=== PATIENT | female | born 1955 | race Caucasian/White ===

== ENCOUNTER 2019-09-23 10:28 | Emergency (ER) | payer OTHER ==
[2019-09-23 11:02] LABS: BASOPHILS # (AUTO) 0.1 10^3/uL (0.0-0.1); BASOPHILS % (AUTO) 0.7 %; EOSINOPHILS # (AUTO) 0.3 10^3/uL (0.0-0.7); EOSINOPHILS % (AUTO) 2.2 %; HGB - HEMOGLOBIN 14.6 g/dL (12.0-16.0); LYMPHOCYTES % (AUTO) 16.8 %; MEAN CORPUSCULAR HEMOGLOBIN 27.6 pg (27.0-31.0); MEAN CORPUSCULAR VOLUME 86.2 fL (81.0-99.0); MEAN PLATELET VOLUME 10.1 fL (7.9-10.8); MONOCYTES # (AUTO) 0.6 10^3/uL (0.0-1.0); MONOCYTES % (AUTO) 5.3 %; NEUTROPHILS # (AUTO) 8.9 10^3/uL (1.5-6.6); NEUTROPHILS % (AUTO) 74.4 %; PLT - PLATELET COUNT 372 10^3/uL (130-450); RED BLOOD COUNT 5.29 10^6/uL (4.20-5.40); RED CELL DISTRIBUTION WIDTH 15.9 % (12.0-15.0); WHITE BLOOD COUNT 11.9 x10^3/uL (4.8-10.8)
[2019-09-23 11:18] LABS: ALBUMIN 4.2 g/dL (3.2-5.5); ALBUMIN/GLOBULIN RATIO 1.1 (1.0-2.2); BILIRUBIN,TOTAL 0.7 mg/dL (0.2-1.0); CALCIUM 9.1 mg/dL (8.5-10.3); CREATININE 0.9 mg/dL (0.4-1.0); TOTAL PROTEIN 7.9 g/dL (6.7-8.2)
--- NOTE | 2019-09-23 11:22 | XRAY Report ---
Reason: Chest pain Procedure Date: 09/23/2019 Accession Number: [id number] / [id number] Procedure: XR - Chest 1 View X-Ray CPT Code: 78630 Final Report FULL RESULT: EXAM: CHEST RADIOGRAPHY 1 VIEW EXAM DATE: 09/23/2019. CLINICAL HISTORY: Chest pain. COMPARISON: None. TECHNIQUE: AP upright portable chest at 1051. FINDINGS: Lungs/Pleura: Normal vasculature. The lungs are clear. No pleural fluid or pneumothorax. Mediastinum: Normal cardiac and mediastinal contours. Bones: Mild degenerative changes of the spine. IMPRESSION: Normal AP upright portable chest. RADIA
--- NOTE | 2019-09-23 11:25 | ED Physician Documentation ---
PD HPI CHEST PAIN - Stated complaint Stated Complaint: CP - Chief complaint Chief Complaint: Cardiac - History obtained from History obtained from: Patient - History of Present Illness Timing - onset: How many weeks ago (Onset of chest pain 2 weeks ago which came on abruptly at that time and was only with light exertion. It continued for an hour or 2 and then decreased over a few hours. Since that time it has been intermittent with exertion mainly and light activity but the last several days has been even at rest. This morning she had an onset of the pain without really any exertion and it continued through being seen in the office. She was given a nitroglycerin which did relieve the pain. She had an EKG which shows some inverted T waves but no ST changes. Referred to the hospital for further testing.) Timing - onset during: Rest, Light activity Timing - details: Intermittant (initially, but more consistent and at rest the past couple of days.) Quality: Aching, Dull, Pain. 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 No: Rest Associated symptoms: Shortness of air, Feeling faint / dizzy. No: Palpitations, Cough Similar symptoms before: Has not had sx before Review of Systems Constitutional: denies: Fever, Chills Nose: reports: Rhinorrhea / runny nose (regularly due to allergies). denies: Congestion Throat: denies: Sore throat Respiratory: denies: Cough GI: denies: Abdominal Pain, Nausea, Vomiting, Diarrhea Skin: denies: Rash, Lesions Neurologic: reports: Generalized weakness. denies: Focal weakness, Numbness, Near syncope PD PAST MEDICAL HISTORY - Past Medical History Past Medical History: No Cardiovascular: None Respiratory: None Neuro: None Endocrine/Autoimmune: None GI: None NETWORKS COMPUTER CONSULTANT: None : None HEENT: None Psych: None Musculoskeletal: None Derm: None - Past Surgical History Past Surgical History: No - Allergies Allergies/Adverse Reactions: Allergies Allergy/AdvReac Type Severity Reaction Status Date / Time No Known Drug Allergies Allergy Verified 09/23/19 10:41 - Social History Does the pt smoke?: No Smoking Status: Never smoker Does the pt drink ETOH?: No - Immunizations Immunizations are current?: Yes - POLST Patient has POLST: No PD ED PE NORMAL - Vitals Vital signs reviewed: Yes - General General: Alert and oriented X 3, No acute distress, Well developed/nourished - HEENT HEENT: Moist mucous membranes, Pharynx benign - Neck Neck: Supple, no meningeal sign, No adenopathy, No JVD - Cardiac Cardiac: RRR, No murmur - Respiratory Respiratory: No respiratory distress, Clear bilaterally - Abdomen Abdomen: Soft, Non tender, No organomegaly - Female Female : Deferred - Rectal Rectal: Deferred - Back Back: No CVA TTP - Derm Derm: Normal color, Warm and dry - Extremities Extremities: No tenderness to palpate, Normal ROM s pain, No edema, No calf tenderness / cord - Neuro Neuro: Alert and oriented X 3, No motor deficit, Normal speech Results - Vitals Vitals: Vital Signs - 24 hr 09/23/19 09/23/19 09/23/19 10:39 11:56 12:00 Temperature 36.0 C L Heart Rate 96 97 81 Respiratory 16 14 15 Rate Blood Pressure 162/86 H 152/92 H 153/94 H O2 Saturation 98 98 98 09/23/19 09/23/19 09/23/19 12:05 12:10 12:31 Temperature Heart Rate 77 76 77 Respiratory 20 22 16 Rate Blood Pressure 141/92 H 149/86 H 147/84 H O2 Saturation 96 97 95 09/23/19 09/23/19 14:00 14:56 Temperature 36.9 C Heart Rate 90 85 Respiratory 19 24 Rate Blood Pressure 157/87 H 166/91 H O2 Saturation 97 98 Oxygen O2 Source Room air - EKG (time done) 10:41 Rate: Rate (enter#) (94) Rhythm: NSR [place]: Normal Intervals: Normal MO QRS: Normal Ischemia: Normal ST segments, T wave inversion (anterolaterally). No: ST elevation c/w ischemia, ST depression - Labs Labs: Laboratory Tests 09/23/19 09/23/19 09/23/19 10:55 10:55 10:55 WBC 11.9 H RBC 5.29 Hgb 14.6 Hct 45.6 MCV 86.2 MCH 27.6 MCHC 32.0 RDW 15.9 H Plt Count 372 MPV 10.1 Neut # (Auto) 8.9 H Lymph # (Auto) 2.0 Placer # (Auto) 0.6 Eos # (Auto) 0.3 Baso # (Auto) 0.1 Absolute Nucleated RBC 0.00 Nucleated RBC % 0.0 D-Dimer Sodium 139 Potassium 3.7 Chloride 99 L Carbon Dioxide 26 Anion Gap 14.0 H BUN 16 Creatinine 0.9 Estimated GFR (MDRD) 63 L Glucose 114 H Calcium 9.1 Magnesium Total Bilirubin 0.7 AST 17 ALT 22 Alkaline Phosphatase 74 Troponin I High Sens 111.1 H* B-Natriuretic Peptide Total Protein 7.9 Albumin 4.2 Globulin 3.7 Albumin/Globulin Ratio 1.1 Lipase 30 09/23/19 09/23/19 09/23/19 12:02 12:02 12:02 WBC RBC Hgb Hct MCV MCH MCHC RDW Plt Count MPV Neut # (Auto) Lymph # (Auto) Placer # (Auto) Eos # (Auto) Baso # (Auto) Absolute Nucleated RBC Nucleated RBC % D-Dimer < 200.0 L Sodium Potassium Chloride Carbon Dioxide Anion Gap BUN Creatinine Estimated GFR (MDRD) Glucose Calcium Magnesium 2.1 Total Bilirubin AST ALT Alkaline Phosphatase Troponin I High Sens B-Natriuretic Peptide 120 H Total Protein Albumin Globulin Albumin/Globulin Ratio Lipase 09/23/19 12:58 WBC RBC Hgb Hct MCV MCH MCHC RDW Plt Count MPV Neut # (Auto) Lymph # (Auto) Placer # (Auto) Eos # (Auto) Baso # (Auto) Absolute Nucleated RBC Nucleated RBC % D-Dimer Sodium Potassium Chloride Carbon Dioxide Anion Gap BUN Creatinine Estimated GFR (MDRD) Glucose Calcium Magnesium Total Bilirubin AST ALT Alkaline Phosphatase Troponin I High Sens 121.0 H* B-Natriuretic Peptide Total Protein Albumin Globulin Albumin/Globulin Ratio Lipase PD MEDICAL DECISION MAKING - ED course Complexity details: reviewed results (EKG with some T wave inversions but no ST elevations. Her troponin is moderately elevated suggesting myocardial injury. A repeat at 2 hours showed a very slight increase from 1 11-1 21. Her d-dimer was negative excluding PE. Her BNP was not elevated. At this point would be concern for unstable angina versus non-STEMI and she needs a higher degree of heart testing then we would provide here at our facility. I talked with [facility] cardiology initially and then the hospitalist. They are accepting of transfer.), re-evaluated patient, considered differential (Concern for [place] versus unstable angina. Given the onset couple of weeks ago quickly at that point, could also consider PE or lung related. Will check lab tests as well as EKG.), d/w patient Departure - Departure Disposition: 02 Transfer Acute Care Hosp Clinical Impression: Elevated troponin, Non-STEMI (non-ST elevated myocardial infarction) Chest pain Qualifiers: Chest pain type: precordial pain Qualified Code(s): R07.2 - Precordial pain Condition: Stable Record reviewed to determine appropriate education?: Yes
[2019-09-23] MEDS ORDERED: METOPROLOL 5 MG/5 ML VIAL IVP STA (11:47)
[2019-09-23] MEDS ORDERED: HEPARIN 25000UNITS/500ML (D5W) 25,000 UNIT/500 ML BAG IV STA (14:23)
[2019-09-23] MEDS ORDERED: CLOPIDOGREL 75 MG TABLET PO STA (14:23)
[2019-09-23] MEDS ORDERED: HEPARIN 5,000 UNIT/ML VIAL IVP STA (14:23)
[2019-09-23] MEDS ORDERED: ATORVASTATIN 10 MG TABLET PO STA (14:24)
[2019-09-23 15:56] VITALS: BP 155/78
== END 2019-09-23 15:56 | disposition short-term general hospital (02) ==
LOC: ED 10:28
DX: I21.4 Non-ST elevation (NSTEMI) myocardial infarction (principal); R07.2 Precordial pain
CPT/HCPCS: 36415; 71045; 80053; 83690; 83735; 83880; 84484; 85025; 85379; 93005; 96374; 96375; 99284; 99285; A9270

== ENCOUNTER 2019-09-23 15:54 | Outpatient (CLI) | payer OTHER | END 2019-09-23 15:55 | disposition short-term general hospital (02) | LOC: EMS 15:54 | PROVIDERS: ATTEND Surgery | DX: R07.9 Chest pain, unspecified (principal) | CPT/HCPCS: A0425; A0426 ==

== ENCOUNTER 2019-10-04 12:20 | Outpatient (CLI) | payer OTHER ==
[2019-10-04 17:27] LABS: CALCIUM 8.8 mg/dL (8.5-10.3)
== END 2019-10-04 23:59 | disposition home or self-care (01) ==
LOC: LAB.S 12:20
PROVIDERS: ATTEND Registered Nurse
DX: I25.2 Old myocardial infarction (principal)
CPT/HCPCS: 36415; 80048

== ENCOUNTER 2021-10-09 10:08 | Outpatient (CLI) | payer OTHER ==
[2021-10-09 16:04] LABS: ALBUMIN 3.7 g/dL (3.2-5.5); ALBUMIN/GLOBULIN RATIO 1.1 (1.0-2.2); ALKALINE PHOSPHATASE 95 IU/L (42-121); ALT ALANINE AMINOTRANSFERASE 29 IU/L (10-60); AST ASPARTATE AMINOTRANSFERASE 18 IU/L (10-42); BILIRUBIN,TOTAL 0.7 mg/dL (0.2-1.0); BUN - BLOOD UREA NITROGEN 21 mg/dL (6-20); CALCIUM 9.4 mg/dL (8.5-10.3); CARBON DIOXIDE - CO2 27 mmol/L (21-32); CHLORIDE 104 mmol/L (101-111); CHOL/HDL RATIO 2.3 (<4.4); CHOLESTEROL 100 mg/dL; CREATININE 0.8 mg/dL (0.4-1.0); GFR - MDRD 72 (>89); GLUCOSE 99 mg/dL (70-100); HDL CHOLESTEROL 43 mg/dL; LDL CHOLESTEROL,CALCULATED 44 mg/dL; LDL CHOLESTEROL,DIRECT 42 mg/dL; SODIUM 140 mmol/L (135-145); TRIGLYCERIDES 63 mg/dL; VLDL CHOLESTEROL 13 mg/dL
[2021-10-09 16:30] LABS: BASOPHILS # (AUTO) 0.1 10^3/uL (0.0-0.1); BASOPHILS % (AUTO) 0.6 %; EOSINOPHILS # (AUTO) 0.4 10^3/uL (0.0-0.7); EOSINOPHILS % (AUTO) 4.3 %; HCT - HEMATOCRIT 42.8 % (37.0-47.0); HGB - HEMOGLOBIN 13.6 g/dL (12.0-16.0); LYMPHOCYTES # (AUTO) 2.5 10^3/uL (1.5-3.5); LYMPHOCYTES % (AUTO) 26.9 %; MEAN CORPUSCULAR HEMOGLOBIN 28.8 pg (27.0-31.0); MEAN CORPUSCULAR HGB CONC 31.8 g/dL (32.0-36.0); MEAN CORPUSCULAR VOLUME 90.7 fL (81.0-99.0); MEAN PLATELET VOLUME 10.3 fL (7.9-10.8); MONOCYTES # (AUTO) 0.8 10^3/uL (0.0-1.0); MONOCYTES % (AUTO) 8.5 %; NEUTROPHILS # (AUTO) 5.6 10^3/uL (1.5-6.6); NEUTROPHILS % (AUTO) 59.4 %; PLT - PLATELET COUNT 349 10^3/uL (130-450); RED BLOOD COUNT 4.72 10^6/uL (4.20-5.40); RED CELL DISTRIBUTION WIDTH 14.3 % (12.0-15.0); WHITE BLOOD COUNT 9.4 x10^3/uL (4.8-10.8)
== END 2021-10-09 10:09 | disposition home or self-care (01) ==
LOC: LAB.S 10:08
DX: I10 Essential (primary) hypertension (principal); E78.5 Hyperlipidemia, unspecified
CPT/HCPCS: 36415; 80053; 80061; 83721; 85025